=== PATIENT | female | born 1965 | race American Indian/Alaskan Native ===

== ENCOUNTER 2022-02-18 11:13 | Outpatient (CLI) | payer BC | END 2022-02-18 11:14 | disposition home or self-care (01) | LOC: CSHMAMMO 11:13 → MERGE 11:30 | PROVIDERS: ATTEND Family Medicine Sports Medicine | DX: Z12.31 Encounter for screening mammogram for malignant neoplasm of breast (principal) | CPT/HCPCS: 77063; 77067 ==

== ENCOUNTER 2023-12-30 12:33 | Outpatient (CLI) | payer BC | END 2023-12-30 12:34 | disposition home or self-care (01) | LOC: CSHMAMMO 12:33 | PROVIDERS: ATTEND Family Medicine Sports Medicine | DX: Z12.31 Encounter for screening mammogram for malignant neoplasm of breast (principal) | CPT/HCPCS: 77063; 77067 ==